=== PATIENT | male | born 1985 | race Caucasian/White ===

== ENCOUNTER 2017-05-01 16:50 | Emergency (ER) | payer MEDICAID ==
[2017-05-01 16:55] VITALS: RESP 18
[2017-05-01] MEDS ORDERED: IPRATROPIUM/ALBUTEROL 3 ML DEYVIAL IH ONE (17:10)
--- NOTE | 2017-05-01 17:14 | EDPHY ---
H & P Stated Complaint: IZABELA sjuvencio today;has a scrape on R hand wants it checked Time Seen by Provider: 05/01/17 17:01 HPI/ROS: CHIEF COMPLAINT: "I just feel like crap" HISTORY OF PRESENT ILLNESS: 31-year-old immunocompetent male currently living in [facility] on work release program, complaining of awaking with flu-like symptoms since this morning including nonproductive cough, wheezing, sore throat, nasal congestion, myalgias. States that numerous people in [facility] have been sick recently. No chest pain. No dyspnea. He would also like me to evaluate an abrasion on the dorsum of the right hand which he states occurred last evening while and he accidentally scratched his hand and his sleep. He is concerned about MRSA. Denies prior history of MRSA. REVIEW OF SYSTEMS: A ten point review of systems was performed and is negative with the exception of the items mentioned in the HPI PAST MEDICAL & SURGICAL HISTORY: No pertinent medical or surgical history SOCIAL HISTORY: Daily smoker. On the [facility] work release program, lives in [facility] PHYSICAL EXAM (Prior to examination, patient consented to physical exam, hands were washed and my usual and customary physical exam procedures followed) 1) GENERAL: Well-developed, well-nourished, alert and oriented. Appears nontoxic . 2) HEAD: Normocephalic, atraumatic 3) HEENT: Pupils equal, round, reactive to light bilaterally. Sclera anicteric. Nasopharynx: Congestion . Oropharynx: Bilateral symmetrical tonsillar enlargement and erythema with no exudate. Uvula midline. No trismus no drooling. Ears bilaterally with normal tympanic membranes. 4) NECK: Full range of motion, no meningeal signs. 5) LUNGS: mild end-expiratory wheeze bilaterally. 6) HEART: Regular rate and rhythm, no murmur, no heave, no gallop. 7) ABDOMEN: No guarding, no rebound, no focal tenderness, negative McBurney's, negative Lange's, negative Rovsing's, negative peritoneal sign, 8) MUSCULOSKELETAL: Right upper extremity: The dorsum of his right hand overlying the mid shaft of the 2nd metacarpal patient has an erythematous abrasion with halo erythema, tenderness. Not consistent with a fight bite mechanism, not overlying joint space. Consistent with acute cellulitis. No fluctuance. No lymphangitic streaking. 9) BACK: No CVA tenderness, no midline vertebral tenderness, no fluctuance, no step-off, no obvious trauma, no visual or palpable abnormality. 10) SKIN: No rash, no petechiae. 11) Psychiatric: Patient is oriented X 3, there is no agitation. DIFFERENTIAL DIAGNOSIS: in no particular include but limited to pneumonia, bronchitis, influenza, strep pharyngitis - Personal History Current Tetanus Diphtheria and Acellular Pertussis (TDAP): Yes - Social History Smoking Status: Current every day smoker Constitutional: Initial Vital Signs Temperature (C) 37.1 C 05/01/17 16:51 Heart Rate 92 05/01/17 16:51 Respiratory Rate 18 05/01/17 16:51 Blood Pressure 155/84 H 05/01/17 16:51 O2 Sat (%) 94 05/01/17 16:51 O2 Delivery Mode Room Air Allergies/Adverse Reactions: No Known Allergies Allergy (Unverified 05/01/17 16:55) Home Medications: Medication Instructions Recorded Albuterol [Proventil Inhaler HFA 1 - 2 puffs IH Q4PRN PRN #1 mdi 05/01/17 (*)] Benzonatate [Tessalon Pearles (RX)] 200 mg PO TID PRN #15 cap 05/01/17 Cephalexin [Keflex] 500 mg PO QID 10 Days cap 05/01/17 Medical Decision Making ED Course/Re-evaluation: 5:48 p.m.: Re-evaluation after DuoNeb treatment he is feeling improvement, his Ovid auscultated lungs are clear bilaterally. No wheezing. Maintain normal saturations. I do not think that chest imaging currently indicated. Regarding his URI symptoms negative rapid strep obtained. Also obtained a respiratory PCR which is currently pending. Do not think the patient is to wait emergency department for these results. Depending on the results we will contact him at his listed phone number for the [facility] as he is currently in [facility] work release program. He also wanted me to evaluate in abrasion on the dorsum of his right hand which does appear acutely infected. He has no history of MRSA. Tetanus is up- to-date. He will be started on oral Keflex. Given wound precautions instructions. Doubt deep space infection, doubt abscess. Patient feels comfortable being discharged.Care and management in consultation with primary supervising physician Dr Wise . - Data Points Laboratory Results: 05/01/17 05/01/17 Unknown 17:15 Group A Strep Screen NEGATIVE (NEGATIVE) Group A Strep DNA Pending Microbiology Results: MICROBIOLOGY 05/01/17 17:00 Nasal, Sinus - Swab Respiratory Panel (PCR) - Final Human Rhinovirus/Enterovirus Medications Given: Discontinued Medications Albuterol/Ipratropium (Duoneb) 3 ml IH EDNOW ONE Stop: 05/01/17 17:11 Last Admin: 05/01/17 17:16 Dose: 3 ml Departure - Departure Disposition: Home, Routine, Self-Care Clinical Impression: Upper respiratory infection Qualifiers: URI type: unspecified URI Qualified Code(s): J06.9 - Acute upper respiratory infection, unspecified Infected abrasion of right hand Qualifiers: Encounter type: initial encounter Qualified Code(s): S60.511A - Abrasion of right hand, initial encounter Condition: Good Instructions: Cellulitis (ED), Upper Respiratory Infection (ED) Additional Instructions: Return to the ER if you develop redness, swelling, discharge, warmth to the wound, red streaks going up your arm , if you develop shortness of breath, chest pain or any other symptoms that concern or any other symptoms that concern you. Referrals: Follow-up, with the [facility] nurse in 1-2 days [Other] - As per Instructions Prescriptions: Albuterol [Proventil Inhaler HFA (*)] 1 - 2 puffs IH Q4PRN PRN #1 mdi PRN Reason: Cough, Moderate Benzonatate [Tessalon Pearles (RX)] 200 mg PO TID PRN #15 cap PRN Reason: Cough, Moderate Cephalexin [Keflex] 500 mg PO QID 10 Days cap
[2017-05-01 18:16] VITALS: BP 113/98; PULSE 98; TEMP 99; O2SAT 95
[2017-05-02 15:07] LABS: PRINT OR CALL CRITICALS TAKE REPORT TO CSC
== END 2017-05-01 18:20 | disposition home or self-care (01) ==
DX: S60.511A Abrasion of right hand, initial encounter (principal); J06.9 Acute upper respiratory infection, unspecified; F17.200 Nicotine dependence, unspecified, uncomplicated; X58.XXXA Exposure to other specified factors, initial encounter

== ENCOUNTER 2019-01-03 08:48 | Emergency (ER) | payer MEDICAID ==
[2019-01-03] MEDS ORDERED: IBUPROFEN 800 MG TAB PO ONE (09:27)
--- NOTE | 2019-01-03 09:27 | EDPHY ---
H & P Stated Complaint: sinus congestion/uri symptoms Time Seen by Provider: 01/03/19 08:54 HPI/ROS: CHIEF COMPLAINT: Left otalgia and discharge since last evening HISTORY OF PRESENT ILLNESS: 33-year-old immunocompetent male complaining of left otalgia and otorrhea since last evening. He notes 2 days of sinus congestion as well. No foreign body insertion. No barotrauma. No hearing loss. No tinnitus. No dizziness. No sore throat. No ocular complaints. No abdominal pain. No fever no chills. REVIEW OF SYSTEMS: 10 systems reviewed and negative with the exception of the elements mentioned in the history of present illness PAST MEDICAL & SURGICAL HISTORY: No pertinent medical or surgical history SOCIAL HISTORY: Positive for tobacco abuse PHYSICAL EXAM (Prior to examination, patient consented to physical exam, hands were washed and my usual and customary physical exam procedures followed) 1) GENERAL: Well-developed, well-nourished, alert and oriented. Sleeping. Easily woken. Appears to be in no acute distress. 2) HEAD: Normocephalic, atraumatic 3) HEENT: Pupils equal, round, reactive to light bilaterally. Sclera anicteric. No injection. Nasopharynx, oropharynx, clear, no lesions. Moist Mucous membranes. No tonsillar enlargement or exudate. Right ear: Clear EAC, TM grossly intact. Nonbulging. No evidence of otitis media otitis externa. Left ear: Discharged at the EAC meatus. Pain with movement of the tragus and auricle. Erythema of the left EAC with no debris. TM grossly intact nonbulging , nonerythematous. Bilateral mastoid nontender non boggy 4) NECK: Full range of motion, no meningeal signs. No adenopathy. 5) LUNGS: Clear auscultation bilaterally, no wheezes, no rhonchi, no retractions. 6) HEART: Regular rate and rhythm, no murmur, no heave, no gallop. 7) ABDOMEN: No guarding, no rebound, no focal tenderness, negative McBurney's, negative Lange's, negative Rovsing's, negative peritoneal sign, 8) MUSCULOSKELETAL: Moving all extremities, no focal areas of tenderness, no obvious trauma. No peripheral edema or discoloration. 9) BACK: No CVA tenderness, no midline vertebral tenderness, no fluctuance, no step-off, no obvious trauma, no visual or palpable abnormality. 10) SKIN: No rash, no petechiae. 11) Psychiatric: Patient is oriented X 3, there is no agitation. DIFFERENTIAL DIAGNOSIS: In no particular include but limited to malignant otitis externa, otitis externa, otitis media, mastoiditis - Personal History Current Tetanus Diphtheria and Acellular Pertussis (TDAP): No - Medical/Surgical History Hx Asthma: No Hx Chronic Respiratory Disease: No Hx Diabetes: No Hx Cardiac Disease: No Hx Renal Disease: No Hx Cirrhosis: No Hx Alcoholism: No Hx HIV/AIDS: No Hx Splenectomy or Spleen Trauma: No Other PMH: denies - Social History Smoking Status: Current every day smoker Constitutional: Initial Vital Signs Temperature (C) 36.7 C 01/03/19 08:50 Heart Rate 82 01/03/19 08:50 Respiratory Rate 16 01/03/19 08:50 Blood Pressure 124/80 H 01/03/19 08:50 O2 Sat (%) 97 01/03/19 08:50 O2 Delivery Mode Room Air Allergies/Adverse Reactions: No Known Allergies Allergy (Verified 01/03/19 08:49) Home Medications: Medication Instructions Recorded Ciprofloxacin/Dexamethasone 4 drops OTIC BID 7 Days bottle 01/03/19 [Ciprodex (RX)] Medical Decision Making ED Course/Re-evaluation: Patient has evidence of left otitis externa. Doubt malignant otitis externa, doubt mastoiditis. He has no debris in the EAC. We will plan on auricular antibiotics, NSAID. Usual and customary NSAID precautions and instructions provided. [facility]. Strict return precautions provided. Patient feels comfortable being discharged. All questions and concerns addressed by myself. Patient given my usual and customary discharge precautions and instructions regarding their clinical impression. Care of patient under supervision of primary Supervising physician Dr Christopher Wise Departure - Departure Disposition: Home, Routine, Self-Care Clinical Impression: Left otitis externa Qualifiers: Otitis externa type: unspecified type Chronicity: acute Qualified Code(s): H60.502 - Unspecified acute noninfective otitis externa, left ear Condition: Good Instructions: Otitis Externa (ED) Additional Instructions: Return to the ER if you develop new or worsening symptoms, if you develop hearing loss, or any other symptoms that concern you Referrals: [facility],. [Clinic] - 2-3 days, call for appt. Prescriptions: Ciprofloxacin/Dexamethasone [Ciprodex (RX)] 4 drops OTIC BID 7 Days bottle
[2019-01-03 09:49] VITALS: BP 122/63
== END 2019-01-03 09:40 | disposition home or self-care (01) ==
DX: H60.502 Unspecified acute noninfective otitis externa, left ear (principal)

== ENCOUNTER 2019-01-12 14:05 | Emergency (ER) | payer MEDICAID ==
--- NOTE | 2019-01-12 14:20 | EDPHY ---
H & P Stated Complaint: Dx with Left otitis externa on ciprodex gtts w/o improvement Source: Patient Exam Limitations: No limitations - Personal History Current Tetanus/Diphtheria Vaccine: Unsure Current Tetanus Diphtheria and Acellular Pertussis (TDAP): Unsure - Medical/Surgical History Hx Asthma: No Hx Chronic Respiratory Disease: No Hx Diabetes: No Hx Cardiac Disease: No Hx Renal Disease: No Hx Cirrhosis: No Hx Alcoholism: No Hx HIV/AIDS: No Hx Splenectomy or Spleen Trauma: No Other PMH: denies - Social History Smoking Status: Current every day smoker Time Seen by Provider: 01/12/19 14:16 HPI/ROS: HPI: This is a 33-year-old male who presents with Chief Complaint: Decreased hearing out of left ear Location: Left ear Quality: Decreased hearing and pain Duration: Several days Signs and Symptoms: no fever, no nausea, no vomiting, no diarrhea, no urinary symptoms, no chest pain, no shortness of breath, no wheezing, no cough, no sore throat, no neck stiffness, no joint pain, no swollen glands, no ear pain, no rash Timing: Worsening Severity: Moderate Context: Patient presents with complaints of decreased hearing out of his left ear accompanied by dull aching pain for the last several days. Patient was seen in this emergency room on 01/03/2019 and diagnosed with left otitis externa and given Ciprodex x7 days. Patient reports compliance with the medication. Not using Q-tips. Patient reports that over the last week he has developed sinus congestion, runny nose and a nonproductive cough. Modifying Factors: See above Comment: ROS: A comprehensive 10 system review of systems is otherwise negative aside from elements mentioned in the history of present illness. MEDICAL/SURGICAL/SOCIAL HISTORY: Medical history: Seasonal allergies. Does not take any regular medications. Surgical history: Denies Social history: Employed at the [employer]. Current every day tobacco user. Family history noncontributory. CONSTITUTIONAL: Overweight well-appearing white male, awake and alert, no obvious distress HEENT: Atraumatic and normocephalic, PERRL, EOMI. Nares patent; no rhinorrhea; no nasal mucosal edema. Right Tympanic membrane clear. Left tympanic membrane has skewed orders; bulging; erythematous. External auditory canals are clear of debris. Oropharynx clear, no exudate and moist pink mucosa. Airway patent. No lymphadenopathy. No meningismus. Cardiovascular: Normal S1/S2, regular rate, regular rhythm, without murmur rub or gallop. PULMONARY/CHEST: Symmetrical and nontender. Clear to auscultation bilaterally. Good air movement. No accessory muscle usage. ABDOMEN: Soft, nondistended, nontender, no rebound, no guarding, no peritoneal signs, no masses or organomegaly. No CVAT. EXTREMITIES: 2/2 pulses, strength 5/5, no deformities, no clubbing, no cyanosis or edema. NEUROLOGICAL: no focal neuro deficits. GCS 15. SKIN: Warm and dry, no erythema. no rash. Good capillary refill. (Renetta Viramontes) Constitutional: Initial Vital Signs Temperature (C) 36.7 C 01/12/19 14:11 Heart Rate 89 01/12/19 14:11 Respiratory Rate 16 01/12/19 14:11 Blood Pressure 123/96 H 01/12/19 14:11 O2 Sat (%) 98 01/12/19 14:11 O2 Delivery Mode Room Air Allergies/Adverse Reactions: No Known Allergies Allergy (Verified 01/03/19 08:49) Home Medications: Medication Instructions Recorded Ciprofloxacin/Dexamethasone 4 drops OTIC BID 7 Days bottle 01/03/19 [Ciprodex (RX)] Amoxicillin Trihydrate [Amoxil] 500 mg PO TID 7 Days cap 01/12/19 Ibuprofen 01/12/19 Medical Decision Making ED Course/Re-evaluation: Vital signs reviewed and stable upon arrival. No signs of tympanic membrane perforation, malignant otitis externa, mastoiditis Otitis externa has cleared with Ciprodex Patient now has otitis media; will treat with high-dose amoxicillin x7 days Referral to the [facility]. This patient was seen under the supervision of my secondary supervising physician. I evaluated and cared for this patient independently. (Renetta Viramontes) I did not see this patient while he was in the emergency department. However his care was discussed with the PA while the patient was in the department. I agree with treatment plan and management (James Mcfarlane) Differential Diagnosis: Differential diagnosis includes but is not limited to otitis media, otitis externa, mastoiditis, parotitis, malignant otitis externa. (Renetta Viramontes) Departure - Departure Disposition: Home, Routine, Self-Care Clinical Impression: Left acute otitis media Condition: Good Instructions: Ear Infection (ED) Additional Instructions: Take antibiotic as directed. Do not skip a dose. Take [id number] antihistamine like Claritin/Ann/Zyrtec daily as needed for allergies. Take [id number] Sudafed every 12 hr as needed for sinus congestion. Establish care at the [facility]. Referrals: Gisela Singh MD [Medical Doctor] - As per Instructions Prescriptions: Amoxicillin Trihydrate [Amoxil] 500 mg PO TID 7 Days cap
[2019-01-12 14:26] VITALS: BP 123/96
== END 2019-01-12 14:32 | disposition home or self-care (01) ==
DX: H66.92 Otitis media, unspecified, left ear (principal)

== ENCOUNTER 2019-01-19 15:05 | Emergency (ER) | payer MEDICAID ==
--- NOTE | 2019-01-19 15:42 | EDPHY ---
General Time Seen by Provider: 01/19/19 15:39 Narrative: CLINICAL IMPRESSION: Dental pain, jaw pain and left ear pain ASSESSMENT/PLAN: Patient is a 33-year-old male with no significant medical history who presents to the emergency department with persistent left lower dental pain radiating into his left jaw as well as persistent however improving left ear pain since ear infection diagnosis. Patient afebrile on arrival, he was in no acute distress, not toxic appearing. Patient with overall poor dentition, extraction site healing well without evidence of infection or abscess. Patient was handling secretions normally, there was no obvious swelling to face, no trismus , no angioedema or evidence of airway compromise. His left ear appears to be healing well without evidence of worsening otitis media or otitis externa. There were no findings to suggest mastoiditis, deep space infection, pharyngitis , retropharyngeal abscess, peritonsillar abscess, Raymond angina, ANUG or systemic infection. Patient will continue his antibiotic as previously directed , given ibuprofen. He understands he must follow up at [facility] for ongoing dental needs. Return precautions discussed. CHIEF COMPLAINT: Dental pain HPI: Patient is a 33-year-old male with no significant medical history who presents to the emergency department with persistent left lower dental pain radiating into his left jaw as well as persistent however improving left ear pain since ear infection diagnosis. Patient reports he was seen in the emergency department originally on January 03, diagnosed with an external ear infection, returned several days later with persistent ear pain. Was diagnosed with an inner ear infection and started on antibiotics. Since then he had a lower left tooth pulled at [facility] 3 days prior, patient is still continuing to have pain at the extraction site which is radiating into his jaw. He is also concerned that his ear pain is not yet gone. He denies any headache, dizziness , fever, ear drainage, neck stiffness, difficulty opening his mouth, difficulty swallowing or neck pain. He has been taking [place] and ibuprofen with adequate relief of his pain he feels. He is requesting prescription ibuprofen. ROS: Otherwise negative, please see HPI. PHYSICAL EXAM: General Appearance: Well-developed, well-appearing and in no acute distress. HEENT: Normocephalic, atraumatic. Right external ear is normal, right TM is normal with pearly emery reflex, nonbulging. Left external canal is mildly hyperemic, no pain when pulling or moving the tragus. Left TM is nonbulging, hyperemic around the edge. There is no evidence of mucopurulent otitis. No mastoid tenderness, erythema or bogginess. PERRLA, EOMI. Nares are clear, mucosa is pink. Patient with overall poor dentition. There is no trismus. Patient with a recent extraction at 19. Which is clean and healing well. There is no evidence of periapical abscess or dry socket. No active draining. Patient does have tenderness at his left TMJ. Oropharynx is otherwise unremarkable. Uvula is midline, there is no tonsillar enlargement. Posterior pharynx is clear. Phonation is normal, there is no stridor. There is no malocclusion. Respiratory: There are no retractions, lungs are clear to auscultation. Cardiac: Regular rate and rhythm, no murmurs or gallops. Gastrointestinal: Abdomen is soft, nontender, bowel sounds normal, no masses/ hernia, no rigidity, guarding or focal peritoneal findings. Skin: Warm, dry, no rashes. Neuro: Alert and oriented x3, Cranial nerves 2-12 grossly intact. No focal deficit. Psych: Normal mood, normal affect. No agitation. MEDICAL DECISION MAKING: Patient was seen independently. Secondary supervising physician at time of evaluation was Dr. Morejon, he did not evaluate this patient. Diagnosis: Dental pain, left ear pain. Summary: See Assessment and Plan for summary of ED visit Decision to obtain medical records or history from someone other than the patient: No Review / Summarize previous medical records: Yes Discussed patient with another provider: Yes, Dr. Morejon Patient Progress: Stable, discharge. - History Smoking Status: Current every day smoker - Objective Vital Signs: Initial Vital Signs Temperature (C) 37.4 C 01/19/19 15:11 Heart Rate 84 01/19/19 15:11 Respiratory Rate 16 01/19/19 15:11 Blood Pressure 139/90 H 01/19/19 15:11 O2 Sat (%) 97 01/19/19 15:11 O2 Delivery Mode Room Air Allergies/Adverse Reactions: No Known Allergies Allergy (Verified 01/19/19 15:15) Home Medications: Medication Instructions Recorded Ciprofloxacin/Dexamethasone 4 drops OTIC BID 7 Days bottle 01/03/19 [Ciprodex (RX)] Amoxicillin Trihydrate [Amoxil] 500 mg PO TID 7 Days cap 01/12/19 Ibuprofen 01/12/19 Ibuprofen 600 mg PO Q6 PRN #30 tablet 01/19/19 Medications Given: Discontinued Medications Ibuprofen (Motrin) 600 mg PO EDNOW ONE Stop: 01/19/19 15:54 Last Admin: 01/19/19 16:14 Dose: 600 mg Departure - Departure Disposition: Home, Routine, Self-Care Clinical Impression: Pain, dental Condition: Good Instructions: Ibuprofen (By mouth), Temporomandibular Disorder (ED), Toothache (ED) Additional Instructions: DISCHARGE INSTRUCTIONS FROM YOUR PROVIDER Thank you for visiting our emergency department today. Rest, push fluids, healthy diet -- all to help your immune system fight any possible infection. Stop smoking as soon as possible. [place] your teeth often. Gargle. Floss. Take good care of your teeth. Continue taking your antibiotics as previously discussed. Ibuprofen 600 mg every 8 hours with food as needed for less severe pain. Do not exceed 2400 mg in 24 hours. Stop if this upsets your stomach. Do not combine with Aleve or other over the counter anti-inflammatory. Return for increased or unmanageable pain, bleeding, redness, drainage, swelling , development of fever, chills, vomiting, rash, difficulty breathing or swallowing, facial swelling, facial redness, facial numbness, tingling, weakness , or droop, swelling of the tongue, throat, or floor of the mouth, chest pain, shortness of breath, neck pain, neck stiffness, drooling, vomiting, rash, dizziness, fainting, or for any other new, worsening or worrisome symptoms. It is imperative that you follow up with your dentist, please be seen tomorrow. [address], [place] [address] People present with illnesses and injuries in different ways, and it is always possible that we have missed something. Again, thank you for choosing our emergency department. We hope that you feel better. [facility] has walk-in appointments at the following days/locations. No appointment is needed. Wing 8-10 am @ [facility] 11 AM-1 PM @ [facility] Saturday 810:30 AM @ [facility] Saturday 8-10 AM @ [facility] 2-4 PM @ [facility] Saturday 8-10 AM @ [facility] Referrals: NONE *PRIMARY CARE P,. [Primary Care Provider] - As per Instructions Prescriptions: Ibuprofen 600 mg PO Q6 PRN #30 tablet PRN Reason: Pain, Moderate
[2019-01-19] MEDS ORDERED: IBUPROFEN 600 MG TAB PO ONE (15:53)
[2019-01-19 16:19] VITALS: BP 145/84
== END 2019-01-19 16:18 | disposition home or self-care (01) ==
DX: K08.89 Other specified disorders of teeth and supporting structures (principal)